=== PATIENT | female | born 1955 | race Caucasian/White ===

== ENCOUNTER 2018-03-20 21:56 | Observation (INO) | payer BC, MEDICAID ==
[~2018-03-20] VITALS: Ht 165.1 cm; Wt 79.2 kg
[~2018-03-20 21:56] MED LIST: ASPI-1265 PO; ATOR40TA71 PO; ESCI10TA PO; KEP500T PO; LEVO75TA PO; METF500T7 PO; OXYC-658 PO; OXYC40TA48 PO; TOP100T PO
[2018-03-20 22:45] LABS: BASOPHILS % (AUTO) 0.6 % (0-1); EOSINOPHILS # (AUTO) 0.2 X10'3 (0-0.9); EOSINOPHILS % (AUTO) 2.9 % (0-6); HEMATOCRIT 29.6 % (35.0-45.0); HEMOGLOBIN 9.1 g/dl (12.0-16.0); LYMPHOCYTES # (AUTO) 2.4 X10'3 (1.1-4.8); MEAN CORPUSCULAR HEMOGLOBIN 22.2 PG (27.0-31.0); MEAN CORPUSCULAR HGB CONC 30.9 % (33.0-36.5); MEAN CORPUSCULAR VOLUME 71.8 FL (78-98); MEAN PLATELET VOLUME 6.9 FL (7.4-10.4); MONOCYTES # (AUTO) 0.7 X10'3 (0-0.9); MONOCYTES % (AUTO) 9.3 % (2-12); NEUTROPHILS # (AUTO) 3.7 X10'3 (1.8-7.7); NEUTROPHILS % (AUTO) 53.2 % (42-75); PLATELET COUNT 510 X10'3 (140-440); RED BLOOD COUNT 4.12 X10'6 (4.20-5.60); RED CELL DISTRIBUTION WIDTH 18.6 % (11.5-14.5)
[2018-03-20 22:57] LABS: PARTIAL THROMBOPLASTIN TIME 23 SECONDS (22-32)
[2018-03-20 23:00] LABS: ALANINE AMINOTRANSFERASE 29 U/L (12-78); ALBUMIN 4.1 G/DL (3.4-5.0); ALKALINE PHOSPHATASE 103 IU/L (46-116); ANION GAP 14 (8-16); ASPARTATE AMINO TRANSFERASE 22 U/L (10-37); BILIRUBIN,TOTAL 0.5 MG/DL (0.1-1.0); BLOOD UREA NITROGEN 35 MG/DL (7-18); BUN/CREATININE RATIO 28.9 (6.6-38.0); CALCIUM 9.1 MG/DL (8.5-10.1); CHLORIDE 103 MMOL/L (99-107); CREATININE 1.21 MG/DL (0.40-0.90); GLUCOSE 125 MG/DL (70-104); POTASSIUM 3.8 MMOL/L (3.5-5.1); SODIUM 140 MMOL/L (135-145); TOTAL CARBON DIOXIDE 23.3 MMOL/L (24-32); TOTAL PROTEIN 8.4 G/DL (6.4-8.2); eGFR 45 ML/MIN
[2018-03-20] MEDS ORDERED: aspirin 325mg tablet PO ONE (23:10)
[2018-03-20] MEDS ORDERED: ondansetron/PF 4mg/2ml inj IV ONE (23:25)
[2018-03-20] MEDS ORDERED: morphine 4 MG/ML inj SYRINge IV ONE (23:25)
[2018-03-21] VITALS (13 sets, daily range): BP systolic 122–161; BP diastolic 55–74
[2018-03-21] MEDS ORDERED: TIZA4CAP6 PO (00:10)
[2018-03-21] MEDS ORDERED: acetaminophen 325mg tablet PO PRN (01:20)
[2018-03-21] MEDS ORDERED: bisacodyl 10mg suppository rectal RC PRN (01:20)
[2018-03-21] MEDS ORDERED: magnesium hydroxide 30ml (MOM) UD suspension PO PRN (01:20)
[2018-03-21] MEDS ORDERED: insulin Lispro (HumaLOG) vial - multi-dose SQ SCH (01:20)
[2018-03-21] MEDS ORDERED: mag hydrox/Alum hydrox/simeth 30ml oral suspension PO PRN (01:20)
[2018-03-21] MEDS ORDERED: dextrose ORAL solution 15 GM/59 ML bottle PO PRN ×2 (01:20)
[2018-03-21] MEDS ORDERED: MESSAGE TO PHARMACY PO ONE (01:20)
[2018-03-21] MEDS ORDERED: glucagon, human recombinant 1mg kit SUBCUT PRN (01:20)
[2018-03-21] MEDS ORDERED: dextrose 50%-water 50ml dispensing syringe IV PRN ×2 (01:20)
[2018-03-21] MEDS ORDERED: furosemide 10 MG/1 ML 10ml inj IV ONE (01:35)
[2018-03-21] MEDS: oxyCODONE IR 5mg (immed. release) tablet PO PRN ×3 (01:49→15:46)
[2018-03-21] MEDS: cyclobenzaprine 10mg tablet PO PRN ×2 (02:28→20:10)
[2018-03-21] MEDS: sodium chloride 0.45% 1,000 ML IV SCH ×2 (02:28→03:40)
[2018-03-21] MEDS ORDERED: diphenhydrAMINE 25mg capsule PO ONE (02:55)
[2018-03-21] MEDS: nitroGLYCERIN 0.4mg SUBLingual tab SL PRN ×2 (03:35→04:06)
[2018-03-21] MEDS: oxyCODONE SR 40mg (sust release) tab PO SCH ×2 (07:21→20:10)
[2018-03-21] MEDS: docusate sod 100mg capsule PO SCH ×2 (07:21→20:10)
[2018-03-21] MEDS: aspirin 81mg tab.chew PO SCH (07:21)
[2018-03-21] MEDS: levetiracetam 250mg tablet PO SCH ×2 (07:22→20:10)
[2018-03-21] MEDS: levoTHYROXINE 100mcg tablet PO SCH (07:22)
[2018-03-21] MEDS: heparin, porcine 5000 units/ml vial SQ SCH ×2 (08:00→20:10)
[2018-03-21] MEDS ORDERED: CAFFEINE CITRATE 60 MG/3 ML injection vial IV PRN (10:05)
[2018-03-21] MEDS ORDERED: metoprolol tartrate 1mg/ml inj IV PRN (10:05)
[2018-03-21] MEDS ORDERED: regadenoson 0.4mg/5ml syringe IV ONE ×2 (10:05→13:46)
[2018-03-21] MEDS ORDERED: nitroGLYCERIN 0.4mg SUBLingual tab SL PRN (10:05)
[2018-03-21] MEDS ORDERED: pneumococcal 23-VAL P-sac vacc 25 mcg/0.5ml vial IMVAC ONE (10:55)
[2018-03-21] MEDS ORDERED: CAFFEINE CITRATE 60 MG/3 ML injection vial IV ONE (13:46)
[2018-03-21] MEDS ORDERED: atorvastatin 20mg tablet PO SCH (21:00)
[2018-03-21] MEDS ORDERED: insulin glargine (Lantus) pen - multi-dose SQ SCH (21:00)
[2018-03-21] MEDS: diphenhydrAMINE 50 mg/ml inj IV PRN (22:58)
[2018-03-22 03:00] VITALS: BP 132/58
[2018-03-22] MEDS: oxyCODONE IR 5mg (immed. release) tablet PO PRN ×2 (04:17→10:49)
[2018-03-22 05:33] LABS: BASOPHILS % (AUTO) 0.5 % (0-1); EOSINOPHILS # (AUTO) 0.4 X10'3 (0-0.9); EOSINOPHILS % (AUTO) 4.3 % (0-6); HEMATOCRIT 31.3 % (35.0-45.0); HEMOGLOBIN 9.6 g/dl (12.0-16.0); LYMPHOCYTES % (AUTO) 22.9 % (21-51); MEAN CORPUSCULAR HGB CONC 30.6 % (33.0-36.5); MEAN CORPUSCULAR VOLUME 71.7 FL (78-98); MEAN PLATELET VOLUME 7.3 FL (7.4-10.4); MONOCYTES # (AUTO) 0.7 X10'3 (0-0.9); MONOCYTES % (AUTO) 8.4 % (2-12); NEUTROPHILS # (AUTO) 5.7 X10'3 (1.8-7.7); NEUTROPHILS % (AUTO) 63.9 % (42-75); PLATELET COUNT 530 X10'3 (140-440); RED BLOOD COUNT 4.36 X10'6 (4.20-5.60); RED CELL DISTRIBUTION WIDTH 18.2 % (11.5-14.5); WHITE BLOOD COUNT 8.9 X10'3 (4.5-11.0)
[2018-03-22 06:00] VITALS: BP 132/58
[2018-03-22 07:07] LABS: ALBUMIN 3.8 G/DL (3.4-5.0); ANION GAP 14 (8-16); BLOOD UREA NITROGEN 25 MG/DL (7-18); BUN/CREATININE RATIO 24.3 (6.6-38.0); CALCIUM 9.3 MG/DL (8.5-10.1); CHLORIDE 99 MMOL/L (99-107); CREATININE 1.03 MG/DL (0.40-0.90); GLUCOSE 184 MG/DL (70-104); PHOSPHORUS 4.5 MG/DL (2.3-4.5); POTASSIUM 4.3 MMOL/L (3.5-5.1); SODIUM 137 MMOL/L (135-145); eGFR 55 ML/MIN
[2018-03-22] MEDS: heparin, porcine 5000 units/ml vial SQ SCH (07:14)
[2018-03-22] MEDS: levetiracetam 250mg tablet PO SCH (07:15)
[2018-03-22] MEDS: aspirin 81mg tab.chew PO SCH (07:15)
[2018-03-22] MEDS: docusate sod 100mg capsule PO SCH (07:15)
[2018-03-22] MEDS: levoTHYROXINE 100mcg tablet PO SCH (07:15)
[2018-03-22] MEDS: oxyCODONE SR 40mg (sust release) tab PO SCH (07:15)
[2018-03-22] MEDS: cyclobenzaprine 10mg tablet PO PRN (07:15)
[2018-03-22] MEDS ORDERED: ONDA4TAB12 PO (10:43)
[2018-03-22] MEDS: diphenhydrAMINE 50 mg/ml inj IV PRN (10:50)
[2018-03-22] MEDS ORDERED: LEVO125T8 PO (10:55)
[2018-03-22 11:00] VITALS: BP 140/80
== END 2018-03-22 13:10 | disposition home or self-care (01) ==
LOC: ER 21:57 → ED HOLD 03-21 01:20 → PCU 3S 03-21 03:38
PROVIDERS: ADMIT Emergency Medicine; ATTEND Family Medicine
DX: R07.89 Other chest pain (principal); E11.9 Type 2 diabetes mellitus without complications; E03.9 Hypothyroidism, unspecified; G40.909 Epilepsy, unspecified, not intractable, without status epilepticus; I10 Essential (primary) hypertension; E78.5 Hyperlipidemia, unspecified; D50.9 Iron deficiency anemia, unspecified; E86.0 Dehydration; K21.9 Gastro-esophageal reflux disease without esophagitis; K59.00 Constipation, unspecified; Z79.82 Long term (current) use of aspirin; Z86.73 Personal history of transient ischemic attack (TIA), and cerebral infarction without residual deficits; Z96.652 Presence of left artificial knee joint; Z98.84 Bariatric surgery status; Z90.710 Acquired absence of both cervix and uterus; Z79.899 Other long term (current) drug therapy; Z79.84 Long term (current) use of oral hypoglycemic drugs
CPT/HCPCS: 36415; 71045; 78452; 80048; 80053; 82948; 83036; 83735; 84100; 84443; 84484; 85025; 85610; 85730; 87070; 93005; 93017; 93306; 96361; 96372; 96374; 96375; 96376; 99285; A9500; G0378; J1200; J1644; J1815; J1940; J2270; J2405; Q0163; J7030

== ENCOUNTER 2018-04-13 02:21 | Emergency (ER) | payer BC, MEDICAID ==
[~2018-04-13] VITALS: Ht 165.1 cm; Wt 77.3 kg
[~2018-04-13 02:21] MED LIST changes: -ESCI10TA PO; +LEVO125T8 PO; -LEVO75TA PO; +ONDA4TAB12 PO; +TIZA4CAP6 PO; -TOP100T PO
[2018-04-13] MEDS ORDERED: ondansetron/PF 4mg/2ml inj IV ONE ×2 (02:55→07:30)
[2018-04-13] MEDS ORDERED: LIDOcaine Viscous 15ml cup PO ONE (02:55)
[2018-04-13] MEDS ORDERED: mag hydrox/Alum hydrox/simeth 30ml oral suspension PO ONE (02:55)
[2018-04-13] MEDS ORDERED: morphine 4 MG/ML inj SYRINge IV ONE ×2 (02:55→04:30)
[2018-04-13] MEDS ORDERED: TIZA4CAP PO (02:57)
[2018-04-13] MEDS ORDERED: BENA20TA76 PO (02:57)
[2018-04-13 03:02] LABS: HEMOGLOBIN 9.1 g/dl (12.0-16.0)
[2018-04-13 03:06] LABS: HEMATOCRIT 29.5 % (35.0-45.0); MEAN CORPUSCULAR HEMOGLOBIN 21.7 PG (27.0-31.0); MEAN CORPUSCULAR HGB CONC 30.9 % (33.0-36.5); MEAN CORPUSCULAR VOLUME 70.2 FL (78-98); MEAN PLATELET VOLUME 7.8 FL (7.4-10.4); PLATELET COUNT 478 X10'3 (140-440); PROTHROMBIN TIME 10.2 SECONDS (9.0-12.0); RED BLOOD COUNT 4.21 X10'6 (4.20-5.60); RED CELL DISTRIBUTION WIDTH 17.2 % (11.5-14.5); WHITE BLOOD COUNT 6.8 X10'3 (4.5-11.0)
[2018-04-13 03:12] LABS: ALANINE AMINOTRANSFERASE 26 U/L (12-78); ALBUMIN 4.3 G/DL (3.4-5.0); ALKALINE PHOSPHATASE 102 IU/L (46-116); AMYLASE 49 U/L (25-115); ANION GAP 16 (8-16); ASPARTATE AMINO TRANSFERASE 19 U/L (10-37); BILIRUBIN,TOTAL 0.3 MG/DL (0.1-1.0); BLOOD UREA NITROGEN 23 MG/DL (7-18); BUN/CREATININE RATIO 21.1 (6.6-38.0); CALCIUM 9.5 MG/DL (8.5-10.1); CHLORIDE 103 MMOL/L (99-107); CREATININE 1.09 MG/DL (0.40-0.90); GLUCOSE 108 MG/DL (70-104); LIPASE 280 U/L (73-393); POTASSIUM 3.9 MMOL/L (3.5-5.1); SODIUM 141 MMOL/L (135-145); TOTAL CARBON DIOXIDE 22.3 MMOL/L (24-32); TOTAL PROTEIN 8.8 G/DL (6.4-8.2); eGFR 51 ML/MIN
[2018-04-13 03:36] LABS: CLARITY,URINE Clear (Clear); COLOR,URINE Yellow (Yellow); GLUCOSE, URINE Negative (Neg); KETONES,URINE Negative (Neg); LEUKOCYTE ESTERASE ,URINE Small (Neg); NITRITES, URINE Negative (Neg); OCCULT BLOOD,URINE Negative (Neg); PROTEIN,URINE Negative (Neg); UROBILINOGEN,URINE 0.2 E.U/dL (0.2-1.0)
[2018-04-13 03:46] LABS: UA COLLECTION TYPE CLN CATCH MIDSTREAM
[2018-04-13 03:50] LABS: BACTERIA,URINE 2+ /HPF (Neg); RBC,URINE NONE SEEN /HPF (0-2); SQUAMOUS EPITHELIAL CELL,UR FEW /LPF (FEW); WBC,URINE 0-4 /HPF (0-4)
[2018-04-13 04:14] LABS: TOTAL CELLS COUNTED 100
[2018-04-13 04:15] LABS: PLATELET ESTIMATE INCREASED
[2018-04-13 04:56] LABS: D-DIMER 0.48 MG/L FEU (0-0.50)
[2018-04-13] MEDS ORDERED: OMEP40CA37 PO (08:43)
[2018-04-13 09:06] VITALS: BP 134/84
== END 2018-04-13 09:09 | disposition home or self-care (01) ==
LOC: ER 02:21
DX: R07.89 Other chest pain (principal); R10.10 Upper abdominal pain, unspecified; R11.2 Nausea with vomiting, unspecified; I10 Essential (primary) hypertension; K21.9 Gastro-esophageal reflux disease without esophagitis; E11.9 Type 2 diabetes mellitus without complications; Z86.73 Personal history of transient ischemic attack (TIA), and cerebral infarction without residual deficits; Z88.0 Allergy status to penicillin; Z88.2 Allergy status to sulfonamides; Z88.8 Allergy status to other drugs, medicaments and biological substances; Z88.6 Allergy status to analgesic agent; Z88.1 Allergy status to other antibiotic agents; Z91.011 Allergy to milk products; Z79.82 Long term (current) use of aspirin
CPT/HCPCS: 36415; 71045; 71250; 80053; 81001; 82150; 83690; 84484; 85025; 85379; 85610; 87077; 87088; 87186; 93005; 96374; 96375; 96376; 99285; J2270; J2405

== ENCOUNTER 2018-09-12 07:32 | Emergency (ER) | payer BC, MEDICAID ==
[~2018-09-12] VITALS: Ht 165.1 cm; Wt 77.1 kg
[~2018-09-12 07:32] MED LIST changes: +BENA20TA76 PO; -ONDA4TAB12 PO; +TIZA4CAP PO
[2018-09-12] MEDS ORDERED: aspirin 81mg tablet.DR PO ONE (08:25)
[2018-09-12 09:34] LABS: ALANINE AMINOTRANSFERASE 26 U/L (12-78); ALBUMIN 4.1 G/DL (3.4-5.0); ALBUMIN/GLOBULIN RATIO 0.8 (1.1-1.5); ALKALINE PHOSPHATASE 125 IU/L (46-116); ANION GAP 13 (8-16); BILIRUBIN,TOTAL 0.4 MG/DL (0.1-1.0); BLOOD UREA NITROGEN 17 MG/DL (7-18); BUN/CREATININE RATIO 15.3 (6.6-38.0); CALCIUM 9.3 MG/DL (8.5-10.1); CHLORIDE 102 MMOL/L (99-107); CREATININE 1.11 MG/DL (0.40-0.90); GLUCOSE 130 MG/DL (70-104); SODIUM 138 MMOL/L (135-145); TOTAL CARBON DIOXIDE 22.9 MMOL/L (24-32); TOTAL PROTEIN 9.3 G/DL (6.4-8.2); eGFR 50 ML/MIN
[2018-09-12 09:35] LABS: ASPARTATE AMINO TRANSFERASE 39 U/L (10-37); POTASSIUM 5.4 MMOL/L (3.5-5.1)
[2018-09-12] MEDS ORDERED: ONDA4TAB6 PO (09:45)
[2018-09-12 10:02] VITALS: BP 168/86
== END 2018-09-12 09:50 | disposition home or self-care (01) ==
LOC: ER 07:33
DX: R07.89 Other chest pain (principal); R06.02 Shortness of breath; R20.0 Anesthesia of skin; R10.9 Unspecified abdominal pain; R11.10 Vomiting, unspecified; M79.89 Other specified soft tissue disorders; E78.00 Pure hypercholesterolemia, unspecified; I10 Essential (primary) hypertension; E11.9 Type 2 diabetes mellitus without complications; K21.9 Gastro-esophageal reflux disease without esophagitis; Z88.6 Allergy status to analgesic agent; Z88.0 Allergy status to penicillin; Z88.1 Allergy status to other antibiotic agents; Z91.011 Allergy to milk products; Z79.82 Long term (current) use of aspirin; Z79.899 Other long term (current) drug therapy; Z86.73 Personal history of transient ischemic attack (TIA), and cerebral infarction without residual deficits; Z86.718 Personal history of other venous thrombosis and embolism; Z87.440 Personal history of urinary (tract) infections; Z90.49 Acquired absence of other specified parts of digestive tract; Z90.710 Acquired absence of both cervix and uterus; Z98.84 Bariatric surgery status; Z96.651 Presence of right artificial knee joint; Z98.890 Other specified postprocedural states
CPT/HCPCS: 36415; 71045; 80053; 84484; 93005; 99285

== ENCOUNTER 2019-03-09 00:42 | Inpatient (IN) | payer BC, MEDICAID | END 2019-03-14 14:50 | disposition home health service (06) | LOC: ER 00:42 → PCU 3S 15:23 ==

== ENCOUNTER 2020-03-08 02:10 | Emergency (ER) | payer BC, MEDICAID ==
[~2020-03-08] VITALS: Ht 165.1 cm; Wt 84.1 kg
[~2020-03-08 02:10] MED LIST changes: -ASPI-1265 PO; +ASPI-974 PO; +LACT1CAP26 PO; +MAGN400T28 PO; +METF500T20 PO; -METF500T7 PO; -OXYC40TA48 PO; +PANT40TA4 PO; -TIZA4CAP PO; -TIZA4CAP6 PO; +TIZA4TAB5 PO
[2020-03-08] MEDS ORDERED: famotidine/PF 10 mg/ml inj IV ONE (02:20)
[2020-03-08] MEDS ORDERED: ondansetron/PF 4mg/2ml inj IV PRN (02:20)
[2020-03-08] MEDS ORDERED: pantoprazole 40 MG vial IV ONE (02:20)
[2020-03-08] MEDS ORDERED: iohexol 350MG/ML 100ml bottle IV ONE (02:32)
--- NOTE | 2020-03-08 03:07 | NUR ---
pt needs a larger IV but she has no access. Tried EJ unsuccessfully. made aware. The IV that was placed in the hand will not pull blood either.
[2020-03-08] MEDS: morphine 4 MG/ML inj SYRINge IV PRN ×2 (03:17→04:17)
[2020-03-08 03:44] LABS: BASOPHILS % (AUTO) 0.5 % (0-1); EOSINOPHILS # (AUTO) 0.1 X10'3 (0-0.9); EOSINOPHILS % (AUTO) 1.6 % (0-6); HEMOGLOBIN 10.7 g/dl (12.0-16.0); LYMPHOCYTES # (AUTO) 1.7 X10'3 (1.1-4.8); LYMPHOCYTES % (AUTO) 19.5 % (21-51); MEAN CORPUSCULAR HEMOGLOBIN 23.5 PG (27.0-31.0); MEAN CORPUSCULAR HGB CONC 31.3 g/dL (33.0-36.5); MEAN CORPUSCULAR VOLUME 75.1 FL (78-98); MEAN PLATELET VOLUME 7.5 FL (7.4-10.4); MONOCYTES # (AUTO) 0.4 X10'3 (0-0.9); MONOCYTES % (AUTO) 4.6 % (2-12); NEUTROPHILS # (AUTO) 6.3 X10'3 (1.8-7.7); NEUTROPHILS % (AUTO) 73.8 % (42-75); PLATELET COUNT 390 X10'3 (140-440); RED BLOOD COUNT 4.53 X10'6 (4.20-5.60); RED CELL DISTRIBUTION WIDTH 26.7 % (11.5-14.5); WHITE BLOOD COUNT 8.6 X10'3 (4.5-11.0)
[2020-03-08 04:06] LABS: ALANINE AMINOTRANSFERASE 18 U/L (12-78); ALBUMIN 3.4 G/DL (3.4-5.0); ALBUMIN/GLOBULIN RATIO 0.9 (1.1-1.5); ALKALINE PHOSPHATASE 109 IU/L (46-116); ANION GAP 11 (8-16); ASPARTATE AMINO TRANSFERASE 18 U/L (10-37); BILIRUBIN,TOTAL 0.4 MG/DL (0.1-1.0); BLOOD UREA NITROGEN 8 MG/DL (7-18); CALCIUM 9.1 MG/DL (8.5-10.1); CHLORIDE 106 MMOL/L (99-107); GLUCOSE 162 MG/DL (70-104); POTASSIUM 3.8 MMOL/L (3.5-5.1); SODIUM 140 MMOL/L (135-145); TOTAL CARBON DIOXIDE 23.1 MMOL/L (24-32); TOTAL PROTEIN 7.1 G/DL (6.4-8.2); eGFR 73 ML/MIN
[2020-03-08 04:13] LABS: MAGNESIUM 1.8 MG/DL (1.5-2.4)
[2020-03-08] MEDS ORDERED: OXYC10TA57 PO (04:13)
[2020-03-08] MEDS ORDERED: GABA-532 PO (04:13)
--- NOTE | 2020-03-08 04:23 | NUR ---
PT REPORTING 9/10 CHEST PAIN. BP 196/81. PT GIVEN 4MG IV MORPHINE.
[2020-03-08 04:34] LABS: ANISOCYTOSIS 3+; ELLIPTOCYTES FEW; MICROCYTOSIS 1+; PLATELET ESTIMATE NORMAL; POLYCHROMASIA FEW
--- NOTE | 2020-03-08 04:54 | NUR ---
DR Burrell MADE AWARE LAST TROP WAS DRAWN AT 0330. HE WOULD LIKE A 3 HR TROP DRAWN AT THIS TIME.
[2020-03-08 06:36] VITALS: BP 166/75
[2020-03-08] MEDS ORDERED: ONDA8TAB6 PO (06:40)
== END 2020-03-08 06:52 | disposition home or self-care (01) ==
LOC: ER 02:11
DX: R07.89 Other chest pain (principal); R11.2 Nausea with vomiting, unspecified; E78.00 Pure hypercholesterolemia, unspecified; I10 Essential (primary) hypertension; K21.9 Gastro-esophageal reflux disease without esophagitis; E11.9 Type 2 diabetes mellitus without complications; G89.29 Other chronic pain; Z86.69 Personal history of other diseases of the nervous system and sense organs; Z86.73 Personal history of transient ischemic attack (TIA), and cerebral infarction without residual deficits; Z90.49 Acquired absence of other specified parts of digestive tract; Z90.710 Acquired absence of both cervix and uterus; Z98.890 Other specified postprocedural states; Z88.8 Allergy status to other drugs, medicaments and biological substances; Z88.2 Allergy status to sulfonamides; Z72.89 Other problems related to lifestyle; Z79.899 Other long term (current) drug therapy
CPT/HCPCS: 36415; 71045; 71275; 74174; 80053; 83735; 83880; 84484; 85025; 93005; 96374; 96375; 96376; 99285; C9113; J2270; J2405; J3490; Q9967

== ENCOUNTER 2020-09-09 04:48 | Inpatient (IN) | payer BC, MEDICAID ==
[~2020-09-09] VITALS: Ht 165.1 cm; Wt 80.0 kg
[~2020-09-09 04:48] MED LIST changes: +GABA-532 PO; +METF-900 PO; -METF500T20 PO; +ONDA8TAB6 PO; +OXYC10TA57 PO; -PANT40TA4 PO; +PANT40TA54 PO
[2020-09-09 05:28] LABS: BASOPHILS # (AUTO) 0.1 X10'3 (0-0.2); BASOPHILS % (AUTO) 0.9 % (0-1); EOSINOPHILS % (AUTO) 0 % (0-6); HEMATOCRIT 34.4 % (35.0-45.0); HEMOGLOBIN 10.8 g/dl (12.0-16.0); LYMPHOCYTES # (AUTO) 1.3 X10'3 (1.1-4.8); LYMPHOCYTES % (AUTO) 11.4 % (21-51); MEAN CORPUSCULAR HEMOGLOBIN 26.4 PG (27.0-31.0); MEAN CORPUSCULAR HGB CONC 31.4 g/dL (33.0-36.5); MEAN CORPUSCULAR VOLUME 84.2 FL (78-98); MEAN PLATELET VOLUME 7.2 FL (7.4-10.4); MONOCYTES # (AUTO) 0.8 X10'3 (0-0.9); MONOCYTES % (AUTO) 6.5 % (2-12); NEUTROPHILS # (AUTO) 9.4 X10'3 (1.8-7.7); NEUTROPHILS % (AUTO) 81.2 % (42-75); PLATELET COUNT 398 X10'3 (140-440); RED BLOOD COUNT 4.09 X10'6 (4.20-5.60); RED CELL DISTRIBUTION WIDTH 18.7 % (11.5-14.5); WHITE BLOOD COUNT 11.6 X10'3 (4.5-11.0)
[2020-09-09 05:45] LABS: ALANINE AMINOTRANSFERASE 52 U/L (12-78); ALBUMIN 3.4 G/DL (3.4-5.0); ALBUMIN/GLOBULIN RATIO 0.7 (1.1-1.5); ALKALINE PHOSPHATASE 240 IU/L (46-116); ANION GAP 16 (8-16); ASPARTATE AMINO TRANSFERASE 35 U/L (10-37); BILIRUBIN,TOTAL 0.2 MG/DL (0.1-1.0); BLOOD UREA NITROGEN 19 MG/DL (7-18); BUN/CREATININE RATIO 14.8 (6.6-38.0); CALCIUM 8.7 MG/DL (8.5-10.1); CHLORIDE 103 MMOL/L (99-107); CREATININE 1.28 MG/DL (0.40-0.90); ETHANOL < 0.010 GM/DL (0.0-0.010); LIPASE 127 U/L (73-393); MAGNESIUM 1.8 MG/DL (1.5-2.4); POTASSIUM 4.6 MMOL/L (3.5-5.1); SODIUM 137 MMOL/L (135-145); TOTAL CARBON DIOXIDE 17.6 MMOL/L (24-32); TOTAL PROTEIN 8.2 G/DL (6.4-8.2); eGFR 42 ML/MIN
--- NOTE | 2020-09-09 05:46 | NUR ---
Dr León in with patient. Rocking in bed unable to sit sit rolling back and forth to edge of [facility]. Rail raised for safety.
[2020-09-09] MEDS ORDERED: insulin regular, human 10 units/0.1 ml syringe SQ ONE (05:50)
[2020-09-09] MEDS ORDERED: ondansetron/PF 4mg/2ml inj IV ONE ×2 (05:50→11:25)
[2020-09-09] MEDS ORDERED: normal saline 1000ml 1,000 ML IV ONE (05:50)
[2020-09-09] MEDS ORDERED: normal saline 1000ML IV soln IVB ONE ×2 (05:50→09:10)
[2020-09-09 05:56] LABS: GLUCOSE 475 MG/DL (70-104)
[2020-09-09] MEDS ORDERED: iohexol 350MG/ML 100ml bottle IV ONE (05:57)
--- NOTE | 2020-09-09 06:05 | NUR ---
refudes i/o urinary cath and unable to urinate. IVF initiaited patietn cooperative.
--- NOTE | 2020-09-09 06:08 | NUR ---
plan to hydrate patietn prior to CTA
[2020-09-09 06:12] LABS: ANISOCYTOSIS 2+; PLATELET ESTIMATE NORMAL
[2020-09-09] MEDS ORDERED: enalaprilat dihydrate 2.5mg/2ml vial IV ONE ×2 (06:15→07:00)
[2020-09-09] MEDS ORDERED: HYDROcodone/acetaminophen 5mg/325mg tablet PO ONE (09:15)
[2020-09-09] MEDS ORDERED: MESSAGE TO NURSING PO ONE (09:15)
[2020-09-09 09:34] LABS: URINE AMPHETAMINE SCREEN NEGATIVE (Neg); URINE BARBITUATE SCREEN NEGATIVE (Neg); URINE BENZODIAZEPINES SCREEN NEGATIVE (Neg); URINE CANNABINOID SCREEN NEGATIVE (Neg); URINE COCAINE SCREEN NEGATIVE (Neg); URINE METHADONE SCREEN NEGATIVE (Neg); URINE OPIATE SCREEN NEGATIVE (Neg); URINE PHENCYCLIDINE SCREEN NEGATIVE (Neg)
[2020-09-09] MEDS ORDERED: diltiazem 5mg/ml 5ml inj. IV ONE (10:00)
[2020-09-09] MEDS ORDERED: diltiazem-NS 100mg/100ml 100 ML IV ONE (10:00)
[2020-09-09] MEDS ORDERED: acetaminophen 325mg tablet PO PRN (10:10)
[2020-09-09] MEDS ORDERED: ondansetron/PF 4mg/2ml inj IV PRN (10:10)
[2020-09-09] MEDS ORDERED: magnesium hydroxide 30ml (MOM) UD suspension PO PRN (10:10)
[2020-09-09] MEDS ORDERED: mag hydrox/Alum hydrox/simeth 30ml oral suspension PO PRN (10:10)
[2020-09-09 10:26] LABS: CLARITY,URINE SLIGHTLY CLOUDY (Clear); COLOR,URINE YELLOW (Yellow); GLUCOSE, URINE >=1000 mg/dl (Neg); KETONES,URINE NEGATIVE (Neg); LEUKOCYTE ESTERASE ,URINE NEGATIVE (Neg); NITRITES, URINE NEGATIVE (Neg); OCCULT BLOOD,URINE NEGATIVE (Neg); PROTEIN,URINE TRACE mg/dl (Neg); UROBILINOGEN,URINE 0.2 E.U/dL (0.2-1.0)
[2020-09-09 10:29] LABS: UA COLLECTION TYPE STRAIGHT CATH
[2020-09-09 10:35] LABS: SQUAMOUS EPITHELIAL CELL,UR MODERATE /LPF (FEW)
[2020-09-09 10:36] LABS: BACTERIA,URINE FEW /HPF (Neg); HYALINE CASTS 0-3 /LPF (NEGATIVE); TRANSITIONAL EPI CELLS,URINE FEW /HPF
[2020-09-09 10:37] LABS: RBC,URINE 0-2 /HPF (0-2)
[2020-09-09] MEDS ORDERED: fentaNYL/PF 50MCG/1 ML 2ML syringe IV ONE (11:25)
--- NOTE | 2020-09-09 11:50 | NUR ---
Note eldadevon in EDM - 09/09/20 at 1219 by HARRY PT EXPERIENCED INCREASED DIZZINESS THEN BECAME UNRESPONSIZE ON THE BEDSIDE COMMODE DUE TO LARGE AMOUNTS OF DARK RED BLOODY STOOL. DR. GRIER WAS MADE AWARE. BLOOD WAS ORDERED IMMEDIATLY AND PT WAS ASSISTED BACK INTO BED BY HONORIO MOLINA.
[2020-09-09 12:04] LABS: BASOPHILS # (AUTO) 0.1 X10'3 (0-0.2); BASOPHILS % (AUTO) 0.9 % (0-1); EOSINOPHILS % (AUTO) 0.1 % (0-6); HEMATOCRIT 34.3 % (35.0-45.0); HEMOGLOBIN 10.7 g/dl (12.0-16.0); LYMPHOCYTES # (AUTO) 1.7 X10'3 (1.1-4.8); LYMPHOCYTES % (AUTO) 13.6 % (21-51); MEAN CORPUSCULAR HGB CONC 31.2 g/dL (33.0-36.5); MEAN CORPUSCULAR VOLUME 83.2 FL (78-98); MEAN PLATELET VOLUME 7.3 FL (7.4-10.4); MONOCYTES % (AUTO) 7.5 % (2-12); NEUTROPHILS # (AUTO) 9.9 X10'3 (1.8-7.7); NEUTROPHILS % (AUTO) 77.9 % (42-75); PLATELET COUNT 369 X10'3 (140-440); RED BLOOD COUNT 4.12 X10'6 (4.20-5.60); RED CELL DISTRIBUTION WIDTH 18.9 % (11.5-14.5); WHITE BLOOD COUNT 12.8 X10'3 (4.5-11.0)
[2020-09-09] MEDS: normal saline 1000ml 1,000 ML IV SCH (12:09)
[2020-09-09] MEDS ORDERED: TIZA4TAB11 PO (13:17)
[2020-09-09] MEDS ORDERED: CALC500T11 PO (13:19)
[2020-09-09] MEDS ORDERED: FERR-29 PO (13:19)
[2020-09-09] MEDS ORDERED: PEDI1TAB PO (13:19)
[2020-09-09] MEDS ORDERED: lisinopril 10 MG tablet PO ONE (13:20)
[2020-09-09] MEDS ORDERED: diltiazem-D5W 125mg/125ml 125 ML IV SCH (13:20)
[2020-09-09] MEDS ORDERED: metoprolol tartrate 1mg/ml inj IV PRN (14:55)
[2020-09-09] MEDS ORDERED: aminophylline 250mg/10ml inj. IV PRN (14:55)
[2020-09-09] MEDS ORDERED: nitroGLYCERIN 0.4mg SUBLingual tab SL PRN (14:55)
[2020-09-09] MEDS ORDERED: regadenoson 0.4mg/5ml syringe IV ONE (14:55)
[2020-09-09] MEDS: enoxaparin 80mg/0.8ml syringe SUBCUT SCH ×2 (15:31→20:08)
--- NOTE | 2020-09-09 16:47 | NUR ---
Called ER to get report, no answer.
[2020-09-09 17:54] VITALS: BP 175/82
--- NOTE | 2020-09-09 17:57 | NUR ---
PAGER ID: [phone] MESSAGE: [id number] Paty Yeung arrived to [facility], BP 175/82. On cardizem 5 mg/HR. ZENON Kimble RN 1959
--- NOTE | 2020-09-09 17:57 | NUR ---
Received report from Shyanne HUITRON
--- NOTE | 2020-09-09 18:03 | NUR ---
Patient arrived in stable condition. 2 RN skin check completed, MRSA swab obtained and vitals obtained. Report elevated BP to MD. Reporting off to NOC shift.
--- NOTE | 2020-09-09 18:16 | NUR ---
PAGER ID: [phone] MESSAGE: [id number] Paty Yeung, please review med rec. Also, she is a diabetic. Please add diabetic protocol. Thanks
--- NOTE | 2020-09-09 18:31 | NUR ---
Problems reprioritized. Patient report given, questions answered & plan of care reviewed with Shelton HUITRON.
[2020-09-09 19:00] VITALS: BP 182/70
[2020-09-09] MEDS: hydrALAZINE 20mg/ml inj. IV PRN (19:21)
[2020-09-09] MEDS ORDERED: dextrose 50%-water 50ml dispensing syringe IV PRN ×2 (19:35)
[2020-09-09] MEDS ORDERED: insulin Lispro (HumaLOG) vial - multi-dose SQ SCH (19:35)
[2020-09-09] MEDS ORDERED: MESSAGE TO PHARMACY PO ONE (19:35)
[2020-09-09] MEDS ORDERED: dextrose ORAL solution 15 GM/59 ML bottle PO PRN ×2 (19:35)
[2020-09-09] MEDS ORDERED: glucagon, human recombinant 1mg kit SUBCUT PRN (19:35)
[2020-09-09 19:56] LABS: HEMOGLOBIN A1C 8.8 % (4.5-6.2)
[2020-09-09] MEDS ORDERED: tizanidine 4mg tablet PO PRN (20:05)
[2020-09-09] MEDS: oxyCODONE IR 5mg (immed. release) tablet PO PRN (20:07)
[2020-09-09] MEDS: gabapentin 300mg capsule PO SCH (20:08)
[2020-09-09 21:00] VITALS: BP 124/47
[2020-09-09] MEDS ORDERED: insulin glargine (Lantus) pen - multi-dose SQ SCH (21:00)
[2020-09-09 22:00] VITALS: BP 87/41
--- NOTE | 2020-09-09 22:36 | NUR ---
Notified Dr. Erwin of patient's decreased BP. Patient asymptomatic. DC'd hernandez de luna
[2020-09-10] VITALS (12 sets, daily range): BP systolic 130–195; BP diastolic 58–80
[2020-09-10] MEDS: normal saline 1000ml 1,000 ML IV SCH ×2 (04:15→07:41)
[2020-09-10] MEDS: oxyCODONE IR 5mg (immed. release) tablet PO PRN (04:18)
[2020-09-10] MEDS: hydrALAZINE 20mg/ml inj. IV PRN (05:17)
[2020-09-10 05:57] LABS: BASOPHILS # (AUTO) 0.1 X10'3 (0-0.2); BASOPHILS % (AUTO) 0.7 % (0-1); EOSINOPHILS # (AUTO) 0.1 X10'3 (0-0.9); EOSINOPHILS % (AUTO) 0.9 % (0-6); HEMATOCRIT 27.9 % (35.0-45.0); HEMOGLOBIN 8.8 g/dl (12.0-16.0); LYMPHOCYTES # (AUTO) 2.5 X10'3 (1.1-4.8); LYMPHOCYTES % (AUTO) 33.5 % (21-51); MEAN CORPUSCULAR HEMOGLOBIN 26.6 PG (27.0-31.0); MEAN CORPUSCULAR HGB CONC 31.6 g/dL (33.0-36.5); MEAN CORPUSCULAR VOLUME 84.1 FL (78-98); MEAN PLATELET VOLUME 7.3 FL (7.4-10.4); MONOCYTES # (AUTO) 0.6 X10'3 (0-0.9); MONOCYTES % (AUTO) 8.3 % (2-12); NEUTROPHILS # (AUTO) 4.2 X10'3 (1.8-7.7); NEUTROPHILS % (AUTO) 56.6 % (42-75); PLATELET COUNT 238 X10'3 (140-440); RED BLOOD COUNT 3.32 X10'6 (4.20-5.60); RED CELL DISTRIBUTION WIDTH 18.9 % (11.5-14.5); WHITE BLOOD COUNT 7.5 X10'3 (4.5-11.0)
[2020-09-10 06:06] LABS: ALBUMIN 2.7 G/DL (3.4-5.0); ANION GAP 9 (8-16); BLOOD UREA NITROGEN 18 MG/DL (7-18); BUN/CREATININE RATIO 20.2 (6.6-38.0); CALCIUM 8.3 MG/DL (8.5-10.1); CHLORIDE 108 MMOL/L (99-107); CREATININE 0.89 MG/DL (0.40-0.90); GLUCOSE 121 MG/DL (70-104); POTASSIUM 4.1 MMOL/L (3.5-5.1); SODIUM 140 MMOL/L (135-145); eGFR 64 ML/MIN
--- NOTE | 2020-09-10 06:33 | NUR ---
Patient in room PCU 3014. I have received report from TOMY Peoples and had the opportunity to ask questions and assume patient care.
--- NOTE | 2020-09-10 06:38 | NUR ---
Patient in room PCU 3014. I have received report from TOMY Peoples and had the opportunity to ask questions and assume patient care.
[2020-09-10] MEDS: gabapentin 300mg capsule PO SCH ×2 (07:39→12:54)
[2020-09-10] MEDS: enoxaparin 80mg/0.8ml syringe SUBCUT SCH (07:39)
[2020-09-10] MEDS ORDERED: aspirin 81mg tablet.DR PO SCH (08:00)
[2020-09-10] MEDS ORDERED: levoTHYROXINE 125mcg tablet PO SCH (08:00)
[2020-09-10] MEDS ORDERED: lisinopril 10 MG tablet PO SCH (08:00)
[2020-09-10] MEDS ORDERED: METO25TA6 PO (14:32)
--- NOTE | 2020-09-10 15:09 | NUR ---
DM consult: Pt presented to ER with c/o chest pain, admitted with Afib RVR. Hx T2DM, A1c 8.8%. RD internet site designer met with pt at bedside for written/verbal DM education, RD contact information provided. Pt reports eats small frequent meals, eats "right", and takes medication regularly. Pt reports going to [facility] walk in for DM care, physician recommended insulin but pt refused per pt. Pt reports unable to exercise d/t past knee surgeries. Discussed with patient healthy carb options and portion sizes. Patient pending discharge at this moment. Will remain available. Addendum: 09/10/20 at [address] Amended: Links added. Addendum: 09/10/20 at [address] I have reviewed and agree with note by Steel Fabricator. Teri Hyman RD
--- NOTE | 2020-09-10 15:35 | NUR ---
Patient is stable for discharge per MD orders. All discharge instructions reviewed with patient and all questions answered. Informed patient to follow up with both PCP and cardiologists within one week of discharge. New prescriptions called into [facility]. PIV discontinued. leather tacker discontinued. Belongings collected and sent with patient. Walked patient out main entrance, and patient left in personal vehicle. Removed armbands at time of discharge.
--- NOTE | 2020-09-10 15:35 | NUR ---
Orientee documentation: I have reviewed and agree with all interventions, assessments performed and documented by TOMY Mclaughlin.
--- NOTE | 2020-09-10 15:35 | NUR ---
Orientee documentation: I have reviewed and agree with all interventions, assessments performed and documented by TOMY Mclaughlin.
--- NOTE | 2020-09-10 15:44 | NUR ---
Priya Medication Administration: For this medication-pass time frame, all medication were reviewed, dispensed, administered and documented per hospital policy by TOMY Mclaughlin
--- NOTE | 2020-09-10 17:54 | NUR ---
Called in prescription to [facility] [address] [facility] for Eliquis 5mg BID [address] Ely.
[2020-09-11] MEDS ORDERED: FLU VACC QS2020-21(6MOS UP)/PF 60 MCG/0.5 ML SYRINGE IMVAC ONE (10:20)
== END 2020-09-10 17:12 | disposition home or self-care (01) | DRG 309 ==
LOC: ER 04:48 → ED HOLD 10:09 → PCU 3S 17:36
PROVIDERS: ADMIT Family Medicine; ATTEND Family Medicine
PROC: 4A02XM4 Measurement of Cardiac Total Activity, External Approach (ICD-10-PCS; principal; 2020-09-10)
PROC: 3E033HZ Introduction of Radioactive Substance into Peripheral Vein, Percutaneous Approach (ICD-10-PCS; 2020-09-10)
DX: I48.91 Unspecified atrial fibrillation (principal); I50.30 Unspecified diastolic (congestive) heart failure; R07.89 Other chest pain; E03.9 Hypothyroidism, unspecified; E11.65 Type 2 diabetes mellitus with hyperglycemia; E78.00 Pure hypercholesterolemia, unspecified; E86.0 Dehydration; G89.29 Other chronic pain; Z96.652 Presence of left artificial knee joint; D64.9 Anemia, unspecified; F41.9 Anxiety disorder, unspecified; I11.0 Hypertensive heart disease with heart failure; M54.9 Dorsalgia, unspecified; K21.9 Gastro-esophageal reflux disease without esophagitis; Z79.01 Long term (current) use of anticoagulants; Z79.82 Long term (current) use of aspirin; Z86.73 Personal history of transient ischemic attack (TIA), and cerebral infarction without residual deficits; Z90.710 Acquired absence of both cervix and uterus; Z91.14 Patient's other noncompliance with medication regimen; Z91.19 Patient's noncompliance with other medical treatment and regimen; Z98.84 Bariatric surgery status; Z88.0 Allergy status to penicillin
CPT/HCPCS: 36415; 71045; 71275; 78452; 80048; 80053; 80305; 80320; 81001; 82948; 83036; 83690; 83735; 83880; 84484; 85008; 85025; 87081; 87088; 93005; 93017; 93306; 93308; 96374; 96375; 99285; A9500; G0378; J0360; J1650; J1815; J2405; J2785; J3010; J3490; J7030; Q9967